=== PATIENT | female | born 2000 | race Caucasian/White ===

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

== ENCOUNTER 2019-01-02 10:36 | Emergency (ER) | payer SELFPAY ==
[2019-01-02 10:39] VITALS: BP 143/92; PULSE 93; RESP 14; TEMP 36.4; O2SAT 98; BMI 34.4
--- NOTE | 2019-01-02 12:21 | ED.UPPEXIN ---
HPI - Extremity Injury (Upper) <LYNNE Ibarra - Last Filed: 01/02/19 22:06> General Chief Complaint: Extremity Injury, Upper Stated Complaint: STITCHES STILL BLEEDING Time Seen by Provider: 01/02/19 12:12 Source: patient Mode of arrival: ambulatory Limitations: no limitations History of Present Illness HPI narrative: 18-year-old female with history of migraines and everyday smoker here for complaint of having occasional bleeding from incision site to her distal left index finger. She was seen here in the emergency room by me 5 days ago after laceration after accidentally cut herself with a kitchen knife while cutting vegetables. She states that occasionally she has had some bleeding from the laceration area. She reports that she frequently has been the distal left finger while at work as she works in a [employer]. She was concerned about infection. She denies any significant trauma to the area. She does report that she did have some yellowish drainage from the finger a few days ago. She denies any other concerns or complaints at this timeframe. Related Data Home Medications Medication Instructions Recorded Confirmed No Known Home Medications 01/02/19 01/02/19 Allergies Allergy/AdvReac Type Severity Reaction Status Date / Time No Known Drug Allergies Allergy Verified 01/02/19 10:39 Review of Systems <LYNNE Ibarra - Last Filed: 01/02/19 22:06> Review of Systems Bleeding from laceration to left index finger Constitutional Denies chills, Denies fever(s), Denies lethargy and Denies weakness Eyes Denies change in vision, Denies eye discharge, Denies irritation and Denies loss of vision ENT Ears, Nose, Mouth, and Throat: Denies change in voice, Denies neck pain and Denies sore throat Cardiovascular Denies chest pain, Denies irregular heart rhythm, Denies lightheadedness, Denies palpitations, Denies dyspnea, Denies dyspnea on exertion and Denies orthopnea Respiratory Denies cough, Denies dyspnea, Denies dyspnea on exertion and Denies wheezing Gastrointestinal Gastrointestinal: Denies abdominal pain, Denies change in bowel habits, Denies diarrhea, Denies nausea and Denies vomiting Genitourinary Denies hematuria, Denies flank pain, Denies urinary incontinence and Denies urinary urgency Musculoskeletal Denies neck pain Integumentary/Breasts Denies pruritus, Denies erythema, Denies rash and Denies wounds Neurologic Denies confusion, Denies loss of vision and Denies weakness Psychiatric Denies anxiety, Denies confusion, Denies depression, Denies homicidal ideation and Denies suicidal ideation Endocrine Denies palpitations Allergic/Immunologic Denies wheezing PFSH <LYNNE Ibarra - Last Filed: 01/02/19 22:06> Social History Smoking Status: Current every day smoker Exam <LYNNE Ibarra - Last Filed: 01/02/19 22:06> Initial Vital Signs Initial Vital Signs: Vital Signs Temperature 97.5 F L 01/02/19 10:39 Pulse Rate 93 H 01/02/19 10:39 Respiratory Rate 14 01/02/19 10:39 Blood Pressure 143/92 H 01/02/19 10:39 Pulse Oximetry 98 01/02/19 10:39 Const General: cooperative and well developed Nutritional Appearance: well nourished Orientation: alert, awake, oriented x3 and not confused HENCT Mouth: oral mucosae normal and moist mucous membranes Eyes Conjunctivae: conjunctivae normal Sclera: sclerae normal Pupils: PERRL EOM: EOM intact bilaterally Resp Effort & Inspection: normal respiratory effort, able to speak in complete sentences, no respiratory distress and no use of accessory muscles Auscultation: clear to auscultation bilaterally, no rales, no rhonchi and no wheezes Cardio Rate: regular rate Rhythm: regular rhythm Heart Sounds: no click, no gallops, no murmurs and no rubs Pulses: normal peripheral pulses Skin General: no rashes or lesions noted, No jaundice and No petechiae Neuro General: alert, oriented x3, gait normal and no focal motor deficits Speech: speech normal Extrem Other: Laceration to distal left index finger appears to be healing well. No signs of infection. Full range of motion. Distal sensation and cap refill is intact. <Marychuy Garcia DO - Last Filed: 01/06/19 02:44> Initial Vital Signs Initial Vital Signs: Vital Signs Temperature 97.5 F L 01/02/19 10:39 Pulse Rate 93 H 01/02/19 10:39 Respiratory Rate 14 01/02/19 10:39 Blood Pressure 143/92 H 01/02/19 10:39 Pulse Oximetry 98 01/02/19 10:39 Course <Mark CheekLYNNE zayas - Last Filed: 01/02/19 22:06> Vital Signs - 8 hr 01/02/19 10:39 Temperature 97.5 F L Pulse Rate 93 H Respiratory Rate 14 Blood Pressure 143/92 H Pulse Oximetry 98 <Marychuy Garcia DO - Last Filed: 01/06/19 02:44> Vital Signs - 8 hr 01/02/19 10:39 Temperature 97.5 F L Pulse Rate 93 H Respiratory Rate 14 Blood Pressure 143/92 H Pulse Oximetry 98 MDM - Extremity Injury (Upper) <Mark CheekLYNNE zayas - Last Filed: 01/02/19 22:06> MDM Narrative Medical decision making narrative: Due to patient having difficulty at work with the laceration to left index finger she is given 2 days work note for today and tomorrow. Splint is applied to finger to protect the distal tip of the finger. No signs of infection is appreciated and wound appears to be healing well. Sutures removed in approximately 5 days give wound time to heal. Tylenol Motrin as needed for any discomfort. Return emergency room for worsening symptoms. Discharge Plan Departure Patient Disposition: Home Clinical Impression: Laceration of left index finger Qualifiers: Encounter type: subsequent encounter Damage to nail status: without damage Foreign body presence: without foreign body Qualified Code(s): S61.211D - Laceration without foreign body of left index finger without damage to nail, subsequent encounter Discharge Date/Time: 01/02/19 13:26 Interventions: ED Discharge Assessment Last Done: 01/02/19 13:26 Instructions: DI for Laceration Repair -- Finger Activity Restrictions/Additional Instructions: Laceration appears to be healing well and no signs of infection. Splint is applied to protect the distal finger from further trauma use as directed. Work note provided due to difficulty and working and work environment with laceration. Sutures removed in 5 days. Use Tylenol or Motrin as needed for any discomfort. Follow up with primary care provider. Return emergency room for worsening symptoms. Prescriptions: No Action No Known Home Medications RF: 0 Referrals: [facility] [Provider Group] Stand Alone Forms: Work Release Note <Marychuy Garcia DO - Last Filed: 01/06/19 02:44> Cosign ED Attending Cosignature Attestation: I was immediately available in the department for consultation. This documentation has been reviewed and I agree with assessment and plan. Supervised by Marychuy Garcia, DO
--- NOTE | 2019-01-02 12:59 | ED_ITS ---
HPI - Extremity Injury (Upper) <LYNNE Ibarra - Last Filed: 01/02/19 22:06> General Chief Complaint: Extremity Injury, Upper Stated Complaint: STITCHES STILL BLEEDING Time Seen by Provider: 01/02/19 12:12 Source: patient Mode of arrival: ambulatory Limitations: no limitations History of Present Illness HPI narrative: 18-year-old female with history of migraines and everyday smoker here for complaint of having occasional bleeding from incision site to her distal left index finger. She was seen here in the emergency room by me 5 days ago after laceration after accidentally cut herself with a kitchen knife while cutting vegetables. She states that occasionally she has had some bleeding from the laceration area. She reports that she frequently has been the distal left finger while at work as she works in a [employer]. She was concerned about infection. She denies any significant trauma to the area. She does report that she did have some yellowish drainage from the finger a few days ago. She denies any other concerns or complaints at this timeframe. Related Data Home Medications Medication Instructions Recorded Confirmed No Known Home Medications 01/02/19 01/02/19 Allergies Allergy/AdvReac Type Severity Reaction Status Date / Time No Known Drug Allergies Allergy Verified 01/02/19 10:39 Review of Systems <LYNNE Ibarra - Last Filed: 01/02/19 22:06> Review of Systems Bleeding from laceration to left index finger Constitutional Denies chills, Denies fever(s), Denies lethargy and Denies weakness Eyes Denies change in vision, Denies eye discharge, Denies irritation and Denies loss of vision ENT Ears, Nose, Mouth, and Throat: Denies change in voice, Denies neck pain and Denies sore throat Cardiovascular Denies chest pain, Denies irregular heart rhythm, Denies lightheadedness, Denies palpitations, Denies dyspnea, Denies dyspnea on exertion and Denies orthopnea Respiratory Denies cough, Denies dyspnea, Denies dyspnea on exertion and Denies wheezing Gastrointestinal Gastrointestinal: Denies abdominal pain, Denies change in bowel habits, Denies diarrhea, Denies nausea and Denies vomiting Genitourinary Denies hematuria, Denies flank pain, Denies urinary incontinence and Denies urin demetria urgency Musculoskeletal Denies neck pain Integumentary/Breasts Denies pruritus, Denies erythema, Denies rash and Denies wounds Neurologic Denies confusion, Denies loss of vision and Denies weakness Psychiatric Denies anxiety, Denies confusion, Denies depression, Denies homicidal ideation and Denies suicidal ideation Endocrine Denies palpitations Allergic/Immunologic Denies wheezing PFSH <LYNNE Ibarra - Last Filed: 01/02/19 22:06> Social History Smoking Status: Current every day smoker Exam <LYNNE Ibarra - Last Filed: 01/02/19 22:06> Initial Vital Signs Initial Vital Signs: Vital Signs Temperature 97.5 F L 01/02/19 10:39 Pulse Rate 93 H 01/02/19 10:39 Respiratory Rate 14 01/02/19 10:39 Blood Pressure 143/92 H 01/02/19 10:39 Pulse Oximetry 98 01/02/19 10:39 Const General: cooperative and well developed Nutritional Appearance: well nourished Orientation: alert, awake, oriented x3 and not confused HENGA Mouth: oral mucosae normal and moist mucous membranes Eyes Conjunctivae: conjunctivae normal Sclera: sclerae normal Pupils: PERRL EOM: EOM intact bilaterally Resp Effort & Inspection: normal respiratory effort, able to speak in complete sentences, no respiratory distress and no use of accessory muscles Auscultation: clear to auscultation bilaterally, no rales, no rhonchi and no wheezes Cardio Rate: regular rate Rhythm: regular rhythm Heart Sounds: no click, no gallops, no murmurs and no rubs Pulses: normal peripheral pulses Skin General: no rashes or lesions noted, No jaundice and No petechiae Neuro General: alert, oriented x3, gait normal and no focal motor deficits Speech: speech normal Extrem Other: Laceration to distal left index finger appears to be healing well. No signs of infection. Full range of motion. Distal sensation and cap refill is intact. <Marychuy Garcia DO - Last Filed: 01/06/19 02:44> Initial Vital Signs Initial Vital Signs: Vital Signs Temperature 97.5 F L 01/02/19 10:39 Pulse Rate 93 H 01/02/19 10:39 Respiratory Rate 14 01/02/19 10:39 Blood Pressure 143/92 H 01/02/19 10:39 Pulse Oximetry 98 01/02/19 10:39 Course <LYNNE Ibarra - Last Filed: 01/02/19 22:06> Vital Signs - 8 hr 01/02/19 10:39 Temperature 97.5 F L Pulse Rate 93 H Respiratory Rate 14 Blood Pressure 143/92 H Pulse Oximetry 98 <Marychuy Garcia DO - Last Filed: 01/06/19 02:44> Vital Signs - 8 hr 01/02/19 10:39 Temperature 97.5 F L Pulse Rate 93 H Respiratory Rate 14 Blood Pressure 143/92 H Pulse Oximetry 98 MDM - Extremity Injury (Upper) <LYNNE Ibarra - Last Filed: 01/02/19 22:06> MDM Narrative Medical decision making narrative: Due to patient having difficulty at work with the laceration to left index finger she is given 2 days work note for today and tomorrow. Splint is applied to finger to protect the distal tip of the finger. No signs of infection is appreciated and wound appears to be healing well. Sutures removed in approximately 5 days give wound time to heal. Tylenol Motrin as needed for any discomfort. Return emergency room for worsening symptoms. Discharge Plan Departure Patient Disposition: Home Clinical Impression: Laceration of left index finger Qualifiers: Encounter type: subsequent encounter Damage to nail status: without damage Foreign body presence: without foreign body Qualified Code(s): S61.211D - Laceration without foreign body of left index finger without damage to nail, subsequent encounter Discharge Date/Time: 01/02/19 13:26 Interventions: ED Discharge Assessment Last Done: 01/02/19 13:26 Instructions: DI for Laceration Repair -- Finger Activity Restrictions/Additional Instructions: Laceration appears to be healing well and no signs of infection. Splint is applied to protect the distal finger from further trauma use as directed. Work note provided due to difficulty and working and work environment with laceration. Sutures removed in 5 days. Use Tylenol or Motrin as needed for any discomfort. Follow up with primary care provider. Return emergency room for worsening symptoms. Prescriptions: No Action No Known Home Medications RF: 0 Referrals: [facility] [Provider Group] Stand Alone Forms: Work Release Note <Marychuy Garcia DO - Last Filed: 01/06/19 02:44> Cosign ED Attending Cosignature Attestation: I was immediately available in the department for consultation. This documentation has been reviewed and I agree with assessment and plan. Supervised by Marychuy Garcia,
--- NOTE | 2019-01-02 13:07 | PC.NURSE ---
Pt states laceration continues to bleed intermittently after sutures placed 12/27/18. This only occurs when she is at work and uses the finger/bumps it on things. No other symptoms at this time. The sutures are intact.No bleeding seen during assessment.
== END 2019-01-02 13:26 | disposition home or self-care (01) ==
PROVIDERS: Emergency Provider Nurse Practitioner Family
DX: S61.211D Laceration without foreign body of left index finger without damage to nail, subsequent encounter (principal)
CPT/HCPCS: 29130; 99282

== ENCOUNTER 2019-10-04 13:09 | Emergency (ER) | payer SELFPAY ==
[2019-10-04 13:14] VITALS: BP 129/82; PULSE 97; RESP 16; TEMP 36.9; O2SAT 98; BMI 37.1
--- NOTE | 2019-10-04 13:17 | PC.NURSE ---
Hot grease spilled on patient. Pt has a small area on bilateral inner thighs half dollar sized without blistering. Pt also has an area on right lower abdomen half dollar sized erythema. Top of patients left foot not including the toes erythema,no blistering
--- NOTE | 2019-10-04 13:26 | ED_ITS ---
HPI - Burn/Smoke Inhalation General Chief complaint: Burn/Smoke Inhalation Stated complaint: Spilled hot grease on left foot Time Seen by Provider: 10/04/19 13:11 Source: patient Mode of arrival: Ambulatory Limitations: no limitations History of Present Illness HPI Narrative: Otherwise healthy 19-year-old female here for evaluation of a burn to the top of her left foot. Patient states she was barefoot in her kitc hen at home when she spilled hot grease on the top of her left foot. She did wash it off. Came to the emergency department for evaluation. Related Data Previous Rx's Medication Instructions Recorded acetaminophen-codeine 1 tab PO Q4H PRN #10 tab 10/04/19 [Tylenol-Codeine #3] Allergies Allergy/AdvReac Type Severity Reaction Status Date / Time No Known Drug Allergies Allergy Verified 10/04/19 13:14 Review of Systems Constitutional Constitutional: Denies fever(s) Integumentary/Breasts Comments: Burn to the top left foot Neurologic Neurologic: Denies confusion Psychiatric Psychiatric: Denies confusion Hematologic/Lymphatic Hematologic/Lymphatic: Denies easy bleeding and Denies easy bruising Patient History Medical History Migraines (Acute) Social History Smoking Status: Current every day smoker alcohol intake frequency: 0-2 drinks per day Substance Use Type: marijuana Exam Initial Vital Signs Initial Vital Signs: Vital Signs Temperature 98.4 F 10/04/19 13:14 Pulse Rate 97 H 10/04/19 13:14 Respiratory Rate 16 10/04/19 13:14 Blood Pressure 129/82 10/04/19 13:14 Pulse Oximetry 98 10/04/19 13:14 Resp Effort & Inspection: normal respiratory effort Skin Other: Patient with a 1% total body surface area burn to the top of the left foot. Superficial junior. No blistering. Neuro Sensory Exam: no sensory deficits noted Extrem Other: Full range of motion left ankle Psych Appearance: grossly normal and well kempt Course Vital Signs Vital signs: Vital Signs - 8 hr 10/04/19 13:14 Temperature 98.4 F Pulse Rate 97 H Respiratory Rate 16 Blood Pressure 129/82 Pulse Oximetry 98 MDM - Burn/Smoke Inhalation MDM Narrative Medical decision making narrative: Less than 1% total body surface area first- degree burn to the top of left foot. So itching cream was placed. Patient was given pain control. She was given return precautions. She given care instructions. She expressed understanding and agreement plan. No indication for transfer to a burn center. Discharge Plan Departure Patient Disposition: Home Clinical Impression: Burn Instructions: DI for Junior Activity Restrictions/Additional Instructions: You can shower like normal. After today you can put topical bacitracin or another topical antibiotic ointment of your choice over the burn of your left foot. Contact your primary provider for follow-up. Return to the emergency department for any new or worsening symptoms Prescriptions: New acetaminophen-codeine [Tylenol-Codeine #3] 300-30 mg tablet 1 tab PO Q4H PRN (Reason: pain) Qty: 10 RF: 0
[2019-10-04] MEDS: SILVER SULFADIAZINE 1% CREAM 25 GM 1 APPLIC TOP (13:32)
[2019-10-04] MEDS: CODEINE/ACETAMINOPHEN 30/300 TABLET 1 TAB PO (13:43)
--- NOTE | 2019-10-04 13:47 | PC.NURSE ---
burn to dorsal aspect of left foot is approx. 10 x 8 cm, no blistering, no marco a, secondary to hot oil exposure, good distal CSM
== END 2019-10-04 13:49 | disposition home or self-care (01) ==
PROVIDERS: Emergency Provider Emergency Medicine
DX: T25.122A Burn of first degree of left foot, initial encounter (principal); T31.0 Burns involving less than 10% of body surface
CPT/HCPCS: 99282; 99283

== ENCOUNTER → 2020-12-11 11:57 | Outpatient (CLI) | payer OTHER, SELFPAY ==
[2020-12-11 12:47] LABS: Alanine Aminotransferase 50 IU/L (<35); Albumin 4.4 g/dL (3.5-5.0); Albumin Globulin Ratio 1.5 (1.0-2.8); Alkaline Phosphatase 104 U/L (38-126); Aspartate Aminotransferase 56 IU/L (14-36); BUN Creatinine Ratio 18.3 (6-22); Bilirubin Total 0.3 mg/dL (0.2-1.3); Blood Urea Nitrogen 13 mg/dL (7-17); Calcium 9.6 mg/dL (8.4-10.2); Carbon Dioxide 29 mmol/L (22-32); Chloride 103 mmol/L (98-107); Cholesterol 226 mg/dL (140-199); Estimated Glomerular Filt Rate > 60.0 mL/min (>60); Globulin 2.9 g/dL (1.7-4.1); Glucose 89 mg/dL (70-100); HDL Cholesterol 43 mg/dL (40-60); HEMOLYSIS < 15 (0-50); LDL Cholesterol Calculated 136 mg/dL (<100); Potassium 4.4 mmol/L (3.4-5.1); Sodium 137 mmol/L (137-145); Total Protein 7.3 g/dL (6.3-8.2); Triglycerides 237 mg/dL (35-150)
[2020-12-11 13:18] LABS: TSH w/ Reflex to FT4 0.66 uIU/mL (0.47-4.68)
== END ==
LOC: LAB 11:57
PROVIDERS: PCP Family Medicine; Referring Provider Family Medicine; Visit Provider Family Medicine
DX: E78.00 Pure hypercholesterolemia, unspecified (principal); Z13.29 Encounter for screening for other suspected endocrine disorder; Z76.89 Persons encountering health services in other specified circumstances
CPT/HCPCS: 36415; 80053; 80061; 84443

== ENCOUNTER 2021-05-11 10:15 | Emergency (ER) | payer OTHER, SELFPAY ==
[2021-05-11] VITALS (15 sets, daily range): BP systolic 104–148; BP diastolic 61–93; PULSE 71–114; RESP 16–20; TEMP 36.6; O2SAT 96–99; BMI 43.8
[2021-05-11 10:39] LABS: Add Manual Diff / Slide Review NO; Basophils Absolute Auto 100 /uL (0-100); Basophils Percent Auto 1.4 % (0-2); Eosinophils Absolute Auto 300 /uL (0-450); Eosinophils Percent Auto 2.5 % (2-4); Hematocrit 40.4 % (36-46); Hemoglobin 13.4 g/dL (12.0-16.0); Lymphocytes Absolute Auto 2900 /uL (1100-4500); Lymphocytes Percent Auto 27.3 % (25-40); Mean Corpuscular HGB Conc 33.1 % (30-36); Mean Corpuscular Hemoglobin 28.8 PG (26-34); Monocytes Absolute Auto 900 /uL (0-900); Monocytes Percent Auto 8.1 % (3-14); Neutrophils Absolute Auto 6400 /uL (1500-7000); Neutrophils Percent Auto 60.7 % (50-75); Platelet Count 389 X10^3/uL (150-400); Red Blood Cell Count 4.64 X10^6/uL (4.0-5.2); Red Cell Distribution Width 15.1 % (11.6-14.8); White Blood Cell Count 10.6 X10^3/uL (4.5-11.0)
[2021-05-11 10:48] LABS: BUN Creatinine Ratio 21.7 (6-22); Blood Urea Nitrogen 13 mg/dL (7-17); Carbon Dioxide 26 mmol/L (22-32); Chloride 106 mmol/L (98-107); Estimated Glomerular Filt Rate > 60.0 mL/min (>60); Glucose 98 mg/dL (70-100); Potassium 4.4 mmol/L (3.4-5.1); Sodium 138 mmol/L (137-145)
[2021-05-11 10:51] LABS: HEMOLYSIS 55 (0-50)
[2021-05-11 11:05] LABS: HCG Quantitative /Beta subunit < 2.4 mIU/mL
--- NOTE | 2021-05-11 11:32 | PC.NURSE ---
Provided pad for pt to switch to.
--- NOTE | 2021-05-11 11:37 | PC.NURSE ---
Pt states period start last night with copious amount of blood noted this morning, additionally has cramping with intermittent dizziness.
--- NOTE | 2021-05-11 12:06 | ED_ITS ---
HPI - Female Genitourinary General Chief complaint: Urogenital-Female Stated complaint: crapping and bleeding Time Seen by Provider: 05/11/21 12:06 Source: patient Mode of arrival: Ambulatory Limitations: no limitations History of Present Illness HPI Narrative: this is a 20-year-old female comes in with complaint of increased pelvic cramping particularly on the right side but both sides in general. Patient states she has had heavy vaginal bleeding. She typically gets irregular periods about every 3 months and has quite heavy periods but this is been significantly worse than normal. She has been going through a super tampon every couple hours. Patient states she has felt a little nauseated. She denies any chest pain or shortness of breath. She has general abdominal discomfort but mostly in the pelvic region. She has some lower back cramping as well. Patient has not appreciate any dysuria, frequency or urgency. She has an appreciate any vaginal discharge or foul odor recently. She states she is sexually active. She has not checked a test at home. Patient states she is otherwise h ealthy does does have a history of herpes outbreaks and is on Valcyte clear daily. No other regular medications. No major surgeries. No known drug allergies. Related Data Previous Rx's Medication Instructions Recorded ketoconazole 2 % topical cream 1 applic TOPICAL BID #15 g 12/11/20 Allergies Allergy/AdvReac Type Severity Reaction Status Date / Time No Known Drug Allergies Allergy Verified 12/11/20 11:14 Review of Systems Review of Systems ROS Unobtainable: All systems reviewed & are unremarkable except as noted in HPI and below Patient History Medical History Herpes (~2019) Migraines Tinea Surgical History Anesthesia History of tonsillectomy (~2007) No pertinent past surgical history alcohol intake frequency: 0-2 drinks per day Substance Use Type: marijuana Exam Narrative Exam Narrative: GENERAL: Alert and oriented x three, Female with BMI of 43 in mild distress. HEENT: Head normocephalic, atraumatic, EOMI, pupils reactive, face symmetric, moist mucous membranes NECK: Supple, full range of motion CARDIOVASCULAR: Regular rate and rhythm without murmurs, rubs or gallops. RESPIRATORY: Breath sounds equal bilaterally, no wheezes rales or rhonchi. ABDOMEN: Soft, Generalized tenderness greatest at the left lower quadrant. Normoactive bowel sounds all 4 quadrants. No guarding or rebound, rigidity, no mass : No CVA tenderness bilaterally EXTREMITIES: Normal range of motion, no clubbing or edema. Neurovascularly intact NEUROLOGICAL: Cranial nerves II through XII grossly intact. Moving all extremities SKIN: Warm, dry, no petechiae, no rashes or lesions. Initial Vital Signs Initial Vital Signs: Vital Signs Temperature 97.8 F 05/11/21 10:23 Pulse Rate 93 H 05/11/21 10:23 Respiratory Rate 20 05/11/21 10:23 Blood Pressure 131/77 05/11/21 10:23 Pulse Oximetry 99 05/11/21 10:23 Course Orders Ordered: ED Orders 05/11/21 12:06 US pelvic complete Stat 05/11/21 13:28 CT abdomen pelvis w con Stat Discontinued Medications Sodium Chloride (Normal Saline 0.9%) 1,000 mls @ 1,000 mls/hr IV BOLUS ONE Stop: 05/11/21 13:06 Last Infusion: 05/11/21 14:01 Dose: 0 mls/hr Documented by: Admin: 05/11/21 12:14 Dose: 1,000 mls/hr Documented by: TASH Ketorolac Tromethamine (Ketorolac 30 Mg/Ml Vial) 30 mg IV NOW ONE Stop: 05/11/21 12:07 Last Admin: 05/11/21 12:15 Dose: 30 mg Documented by: TASH Ondansetron HCl (Ondansetron 4 Mg/2 Ml Inj) 4 mg IV NOW ONE Stop: 05/11/21 12:07 Last Admin: 05/11/21 12:15 Dose: 4 mg Documented by: TASH Consultations Consultation #1: Foist, call to follow up in office. Agree with need for section leader follow up. Time: 15:43 Vital Signs Vital signs: Vital Signs - 8 hr 05/11/21 12:00 05/11/21 12:14 05/11/21 12:30 Pulse Rate 85 80 114 H Blood Pressure 104/74 Pulse Oximetry 96 99 98 05/11/21 12:31 05/11/21 12:58 05/11/21 13:00 Pulse Rate 105 H 82 83 Blood Pressure 148/93 H 136/63 137/66 Pulse Oximetry 99 97 97 05/11/21 13:30 05/11/21 13:31 05/11/21 14:20 Pulse Rate 83 81 78 Blood Pressure 120/61 Pulse Oximetry 97 98 99 05/11/21 14:30 05/11/21 15:00 05/11/21 15:27 Pulse Rate 78 71 79 Blood Pressure 138/63 Pulse Oximetry 97 97 96 05/11/21 15:30 Pulse Rate 80 Blood Pressure 140/65 Pulse Oximetry 97 MDM - Female Genitourinary Lab Data Attestation: I reviewed the patient's lab results. Result diagrams: 05/11/21 10:10 05/11/21 10:10 Labs: Lab Results 05/11/21 05/11/21 Range/Units 10:10 10:10 WBC 10.6 (4.5-11.0) X10^3/uL RBC 4.64 (4.0-5.2) X10^6/uL Hgb 13.4 (12.0-16.0) g/dL Hct 40.4 (36-46) % MCV 87.0 (80-100) fL MCH 28.8 (26-34) PG MCHC 33.1 (30-36) % RDW 15.1 H (11.6-14.8) % Plt Count 389 (150-400) X10^3/uL Neut % (Auto) 60.7 (50-75) % Lymph % (Auto) 27.3 (25-40) % Dillon % (Auto) 8.1 (3-14) % Eos % (Auto) 2.5 (2-4) % Baso % (Auto) 1.4 (0-2) % Neut # (Auto) 6400 (5514-4087) /uL Lymph # (Auto) 2900 (5830-8730) /uL Dillon # (Auto) 900 (0-900) /uL Eos # (Auto) 300 (0-450) /uL Baso # (Auto) 100 (0-100) /uL Sodium 138 (137-145) mmol/L Potassium 4.4 (3.4-5.1) mmol/L Chloride 106 (98-107) mmol/L Carbon Dioxide 26 (22-32) mmol/L BUN 13 (7-17) mg/dL Creatinine 0.60 (0.52-1.04) mg/dL Estimated GFR > 60.0 (>60) mL/min BUN/Creatinine Ratio 21.7 (6-22) Glucose 98 (70-100) mg/dL Calcium 9.0 (8.4-10.2) mg/dL HCG, Quant < 2.4 mIU/mL Imaging Data US - STAFF SUBMARINE WARFARE OFFICER: Radiologist's Impression: [address] [id number] ReportSigned Patient: Chen Slaughter#: [id number]: 2000Acct:[id number]/Sex: 20 / FDate of Service: 05/11/21Loc: EDAccession Number: [id number] Procedure: US pelvic complete Ordering Provider: Marychuy Garcia D.O. PROCEDURE: US PELVIC COMPLETE INDICATIONS: vaginal bleeding, no TECHNIQUE: Real-time scanning was performed of the pelvic organs, with image documentation. Additional endovaginal scanning was necessary due to incomplete visualization of the adnexal and endometrial structures by transabdominal scanning. COMPARISON: None. FINDINGS: Uterus: Uterus is normal in size at 7.2 x 3.8 x 5.2 cm. The endometrium measures 8.6 mm in combined thickness. Ovaries: Right ovary is unremarkable. It measures 3.3 x 1.9 x 1.9 cm. There is no normal left ovary seen. There is a very large left adnexal cystic mass with either debris or irregular wall thickening measuring 13.0 x 7.5 x 8.3 cm. There is no vascularity to this lesion. Other: No pathologic free abdominal or pelvic fluid. IMPRESSION: Very large cystic left adnexal mass with either debris or irregular wall thickening. No normal left ovary seen. Comment: Recommend CT abdomen and pelvis with contrast. Dictated by: Perico Yusuf M.D. on 05/11/2021 at 12:05 Approved by: Perico Yusuf M.D. on 05/11/2021 at 12:09 CT scan - abdomen/pelvis: Radiologist's Impression: [address] [id number] Scan ReportSigned Patient: Sarita SlaughterR#: [id number]: 2000Acct:[id number]/Sex: 20 / FDate of Service: 05/11/21Loc: EDAccession Number: [id number] Procedure: CT abdomen pelvis w con Ordering Provider: Marychuy Garcia D.O. PROCEDURE: CT ABDOMEN PELVIS W CON INDICATIONS: adnexal mass, vaginal bleeding TECHNIQUE: After the administration of intravenous contrast, axial sections acquired from the lung bases to the pubic symphysis. Coronal and sagittal reformats were performed. For radiation dose reduction, the following was used: automated exposure control, adjustment of mA and/or kV according to patient size. COMPARISON: [facility], , PELVIC COMPLETE, 05/11/2021, 12:29. FINDINGS: Image quality: Excellent. Lung bases: Unremarkable. Heart: No significant findings. ABDOMEN: Liver: Unremarkable. Gallbladder: Unremarkable. Biliary ducts: Unremarkable. Pancreas: Unremarkable. Spleen: Unremarkable. Adrenal Glands: Unremarkable. Kidneys and Ureters: Unremarkable. Stomach and Bowel: Stomach, small bowel loops, and colon are unremarkable. Normal appendix. Peritoneum: No abnormal intraperitoneal fluid. No free air. Ventral Wall: No hernias. Abdominal Nodes: No retroperitoneal or mesenteric adenopathy by size criteria. Vessels: Aorta and inferior vena cava are normal in size. PELVIS: Pelvic Organs: There is a large cystic pelvic mass, which may potentially arise from the left adnexa, as suggested by today's pelvic ultrasound. However, it is predominantly to the right of midline. It has wall thickening and minimal wall calcification. It measures 12.3 x 12.6 x 7.9 cm. Bladder: Unremarkable. Pelvic Nodes: No enlarged lymph nodes. Miscellaneous: No hernias are seen. Bones: Unremarkable. IMPRESSION: 1. Large cystic pelvic mass of uncertain etiology. 2. No other significant findings. Recommend STAFF SUBMARINE WARFARE OFFICER consultation. Dictated by: Perico Yusuf M.D. on 05/11/2021 at 13:29 Approved by: Perico Yusuf M.D. on 05/11/2021 at 13:35 MDM Narrative Medical decision making narrative: This is a 20-year-old female with chronically very heavy vaginal bleeding with irregular periods which developed significantly worse bleeding and then normal. Patient's vital signs of labs her reassuring but pelvic ultrasound was ordered. Urine was negative. There appears to be in excellent mass and CT abdomen was ordered for further characterization. There is quite a large mass noted patient case was discussed with OBGYN, Dr. Su who agrees that patient would benefit from follow-up shortly and patient is to follow up outpatient and contact them tomorrow. Patient defers any medications for pain we did discuss return precautions. She is comfortable with this plan at the time. Discharge Plan Departure Patient Disposition: Home Clinical Impression: Vaginal bleeding, Pelvic mass Activity Restrictions/Additional Instructions: Follow-up with Dr. Su or one of your partners for further evaluation and workup of the pelvic mass found on your imaging today. call the office 1st thing tomorrow morning. Let them know that Dr. Su would like you to be seen urgently. You may take Motrin up to 800 mg every 8 hours as needed for pain. You may also take Tylenol up to a 1000 mg every 8 hours as needed for pain. Please return for fevers, rapidly worsening abdominal, back or flank pain, persistent vomiting, lightheadedness or passing out, chest pain or shortness of breath, if you are having worsening vaginal bleeding or going through a pad or tampon an hour or other new or concerning symptoms. Prescriptions: No Action ketoconazole 2 % cream 1 applic topical BID Qty: 15 RF: 2 Referrals: Genia Su MD [Physician] - Erickson Ramos DO [Primary Care Provider] -
[2021-05-11] MEDS: SODIUM CHLORIDE 0.9% 1,000 ML 1000 ML IV (12:14)
[2021-05-11] MEDS: ONDANSETRON 4 MG/2 ML INJ IV (12:15)
[2021-05-11] MEDS: KETOROLAC 30 MG/ML VIAL IV (12:15)
--- NOTE | 2021-05-11 13:28 | DI.CT.S_ITS ---
PROCEDURE: CT ABDOMEN PELVIS W CON INDICATIONS: adnexal mass, vaginal bleeding TECHNIQUE: After the administration of intravenous contrast, axial sections acquired from the lung bases to the pubic symphysis. Coronal and sagittal reformats were performed. For radiation dose reduction, the following was used: automated exposure control, adjustment of mA and/or kV according to patient size. COMPARISON: [facility], , PELVIC COMPLETE, 05/11/2021, 12:29. FINDINGS: Image quality: Excellent. Lung bases: Unremarkable. Heart: No significant findings. ABDOMEN: Liver: Unremarkable. Gallbladder: Unremarkable. Biliary ducts: Unremarkable. Pancreas: Unremarkable. Spleen: Unremarkable. Adrenal Glands: Unremarkable. Kidneys and Ureters: Unremarkable. Stomach and Bowel: Stomach, small bowel loops, and colon are unremarkable. Normal appendix. Peritoneum: No abnormal intraperitoneal fluid. No free air. Ventral Wall: No hernias. Abdominal Nodes: No retroperitoneal or mesenteric adenopathy by size criteria. Vessels: Aorta and inferior vena cava are normal in size. PELVIS: Pelvic Organs: There is a large cystic pelvic mass, which may potentially arise from the left adnexa, as suggested by today's pelvic ultrasound. However, it is predominantly to the right of midline. It has wall thickening and minimal wall calcification. It measures 12.3 x 12.6 x 7.9 cm. Bladder: Unremarkable. Pelvic Nodes: No enlarged lymph nodes. Miscellaneous: No hernias are seen. Bones: Unremarkable. IMPRESSION: 1. Large cystic pelvic mass of uncertain etiology. 2. No other significant findings. Recommend FLAT SORTER PROCESSOR consultation. Dictated by: Perico Yusuf M.D. on 05/11/2021 at 13:29 Approved by: Perico Yusuf M.D. on 05/11/2021 at 13:35
== END 2021-05-11 16:01 | disposition home or self-care (01) ==
PROVIDERS: Emergency Provider Emergency Medicine; PCP Family Medicine
DX: R19.00 Intra-abdominal and pelvic swelling, mass and lump, unspecified site (principal); N93.9 Abnormal uterine and vaginal bleeding, unspecified
CPT/HCPCS: 36415; 74177; 76830; 76856; 80048; 84702; 85025; 99284; J1885; J2405; Q9967

== ENCOUNTER → 2021-05-13 17:11 | Outpatient (CLI) | payer OTHER, SELFPAY ==
[2021-05-13 18:00] LABS: Cancer Antigen 125 26.5 U/mL (0-35)
== END ==
PROVIDERS: PCP Family Medicine; Visit Provider Specialist
DX: N94.89 Other specified conditions associated with female genital organs and menstrual cycle (principal); R19.00 Intra-abdominal and pelvic swelling, mass and lump, unspecified site
CPT/HCPCS: 86304

== ENCOUNTER → 2021-05-20 13:27 | Outpatient (CLI) | payer OTHER, SELFPAY ==
[2021-05-20 14:22] LABS: COVID19 -Nasal RAPID Negative (Negative)
== END ==
PROVIDERS: PCP Family Medicine; Visit Provider Specialist
DX: Z20.822 Contact with and (suspected) exposure to COVID-19 (principal)
CPT/HCPCS: 87635

== ENCOUNTER 2021-05-20 14:00 | Day surgery (SDC) | payer OTHER, SELFPAY ==
[2021-05-15 14:20] VITALS: BMI 43.7
[2021-05-20] VITALS (7 sets, daily range): BP systolic 134–165; BP diastolic 79–100; PULSE 62–92; RESP 14–18; TEMP 36.6–36.8; O2SAT 95–98; BMI 43.7
--- NOTE | 2021-05-20 | PATH_ITS ---
Note [facility] Accession Number: [id number] TESTS RESULT FLAG UNITS REF RANGE LAB Clinician Provided Cytology Information No. of containers..01 Other (Miscellaneous) 01 LEFT OVARY CELL WASH DIAGNOSIS: 02 LEFT OVARY CELL WASH POSITIVE FOR NEOPLASM. THIS INTERPRETATION INCLUDES EVALUATION OF A CELL BLOCK. PLEASE SEE COMMENT. 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 Pathologist ICD10: 02 N83.209, R10.2 02 Trang Agrawal MD, Pathologist NPI- [id number] Jeffrey Lofton, [employer] ([facility]) 01 20 CC, RED, CLOUDY RECEIVED: FRESH IN WHITE CAP CONTAINER. /[facility] 05/22/2021 0545 Local FLAG LEGEND: L-Low Normal,H-High Normal,LL-Alert Low,HH-Alert High <-Panic Low,>-Panic High,A-Abnormal,AA-Critical Abnormal Performed at: 01 =Z [facility] [address] [address], [place] [address] Scott Gray MD, 02 L[facility] [address] [place] [address] Reyna Thornton MD, Performed at: 01 [facility] [address], [place], [place] [id number] MD Scott Gray MD Phone: [phone]
[2021-05-20] MEDS: LACTATED RINGERS 1,000 ML 100 ML IV (14:40)
--- NOTE | 2021-05-20 15:01 | PM.PREOP ---
Pre-operative Note COVID-19 COVID-19 status: Negative Result date/Date tested (Pos, Neg/Pending): 05/20/21 Interval Note History & Physical reviewed/Exam performed by Physician: Yes Changes to H&P: No
--- NOTE | 2021-05-20 15:36 | SUR.OPER ---
Lithotomy on padded OR bed, head on pillow, right arms secured on padded arm board at <90 degrees abduction, left arm padded and tucked at side. Legs secured in padded yellow fins stirrups.
[2021-05-20] MEDS: BUPIVACAINE 0.5% (PF) VIAL 30 ML INJ (16:00)
[2021-05-20] MEDS: EPINEPHrine 1 MG/ML 0.15 MG INJ (16:01)
[2021-05-20] MEDS: fentaNYL 100 MCG/2 ML INJ IV ×3 (16:54→17:12)
--- NOTE | 2021-05-20 16:55 | P.OP_ITS ---
Operative Date/Time/Diagnoses Date of procedure: 05/20/21 Time of procedure: 16:55 Pre-op diagnosis: Left ovarian cyst Post-op diagnosis: same Procedure & Clinicians Procedure: Laparoscopic left salpingo oophorectomy with collections of cell washing Same procedure as scheduled: Yes Indications: Left ovarian cyst with normal CA 125 Surgeon: Genia Su Spinning Machine Tender: Paramjit Brunner Anesthesia Type: General Operative Notes Findings: Large left ovarian cyst. Normal right ovary and tube. Normal appearing liver edge. Normal appearing bowel surface. No endometriosis. No internal hernias. Closure Type: primary Specimen(s): other (Left tube and ovary and cell washings) Estimated Blood Loss (mL): 5 Blood products transfused: none Procedure in detail: Patient was brought to the operating room where she underwent general anesthesia. She was placed in low yellowfin stirrups and prepped and draped in usual sterile fashion. No antibiotics were indicated. Pulsatile stockings were in place and functional. Warming was with blankets. A single-tooth tenaculum was placed on the anterior lip of the cervix and the cervix dilated to #6 Hegar dilator. The Jackie uterine manipulator was placed and balloon inflated with 3 mL of air. The area of the incisions were injected with half percent Marcaine with epinephrine. An incision was made in the umbilicus with a scalpel and the Verres needle placed in the abdomen. Confirmation of correct placement of the needle was performed by withdrawing on the syringe and then allowing fluid to fall freely through the needle. The abdomen was insufflated to 4 L of CO2. A 5 mm trocar was placed under direct visualization. 2 other 5 mm trochars were placed in the right and left lower quadrant under direct visualization after incising the skin. There did not appear to be any damage with placement of the trocars. The left infundibulopelvic ligament was cauterized and cut with the PK generator. Sequential bites taken down the broad ligament hugging the ovary. The utero-ovarian ligament and the fallopian tube were cauterized and cut allowing the tube and ovary to be freed. The fluid was drained from the ovary being careful not to spill any tissue into the abdomen. A 15 mm port was placed suprapubically after injecting the skin with lidocaine. The tube and ovary were placed in an Endo-Catch bag and brought up to the skin. The tissue was removed without spillage. Adequate hemostasis was noted. Cell washings were obtained. The CO2 was allowed to escape from the abdomen. The trochars were removed. The suprapubic trocar fascia defect was repaired with a [id number] suture of 0 Vicryl suture. Skin was closed with 4-0 monocryl. The patient went to recovery room in good condition. The left tube and ovary as well cell washings sent to pathology. Complications: none Post-operative Condition: stable Disposition: same day surgery Plan for aftercare: Routine post laparoscopy. Treatment and follow-up based on biopsy results.
[2021-05-20] MEDS: OXYCODONE/ACETAMINOPHEN 5/325 TABLET 1 TAB PO (16:56)
== END 2021-05-20 17:57 | disposition home or self-care (01) ==
PROVIDERS: PCP Family Medicine; Referring Provider Specialist; Visit Provider Specialist
PROC: (CPT 58661; principal; 2021-05-20 15:30)
DX: N83.202 Unspecified ovarian cyst, left side (principal); F17.210 Nicotine dependence, cigarettes, uncomplicated; E66.9 Obesity, unspecified; Z68.41 Body mass index [BMI] 40.0-44.9, adult; Z20.822 Contact with and (suspected) exposure to COVID-19
CPT/HCPCS: 58661; 81025; 87635; J0171; J0330; J1100; J1885; J2405; J2704; J2765; J3010

== ENCOUNTER → 2021-05-21 09:47 | Outpatient (CLI) | payer OTHER, SELFPAY ==
[2021-05-21 10:26] LABS: Appearance Urine UA CLEAR; Bilirubin Urine UA NEGATIVE (NEGATIVE); Color Urine UA YELLOW; Glucose Urine UA NEGATIVE (Negative); Ketones Urine UA NEGATIVE (NEGATIVE); Leukocyte Esterase Urine UA NEGATIVE (NEGATIVE); Nitrite Urine UA NEGATIVE (Negative); Occult Blood Urine UA 3+ (Negative); Protein Urine UA TRACE (Negative); Specific Gravity Urine UA 1.015 (1.000-1.035); Urobilinogen Urine UA 0.2 E.U./dL (0.2)
[2021-05-21 10:50] LABS: Bacteria Urine Few (2-10); Culture Indicated Urine Cult Not Indicated; RBC Urine 1-5/HPF (0-5/HPF); Squamous Epithelial Cell Urine 5-10 /HPF (0-5/HPF); Transitional Epi Cells Urine 0-1/HPF (0-5/HPF); WBC Urine 0-1/HPF (0-5/HPF)
== END ==
PROVIDERS: PCP Family Medicine; Referring Provider Specialist; Visit Provider Specialist
DX: R35.0 Frequency of micturition (principal); R39.15 Urgency of urination
CPT/HCPCS: 81001

== ENCOUNTER 2021-06-24 23:14 | Emergency (ER) | payer OTHER, SELFPAY ==
[2021-06-24 23:27] VITALS: PULSE 87; O2SAT 96
[2021-06-24 23:28] VITALS: BP 151/96; PULSE 87; O2SAT 98
[2021-06-24 23:30] VITALS: PULSE 91; O2SAT 98
[2021-06-24 23:32] VITALS: BP 151/96; PULSE 89; RESP 20; TEMP 37; O2SAT 98; BMI 43.5
[2021-06-24 23:49] LABS: Add Manual Diff / Slide Review NO; Basophils Absolute Auto 0 /uL (0-100); Basophils Percent Auto 0.2 % (0-2); Eosinophils Absolute Auto 200 /uL (0-450); Eosinophils Percent Auto 1.9 % (2-4); Hematocrit 39.2 % (36-46); Hemoglobin 13.1 g/dL (12.0-16.0); Lymphocytes Absolute Auto 3700 /uL (1100-4500); Lymphocytes Percent Auto 33.7 % (25-40); Mean Corpuscular HGB Conc 33.3 % (30-36); Mean Corpuscular Hemoglobin 28.9 PG (26-34); Mean Corpuscular Volume 86.7 fL (80-100); Monocytes Absolute Auto 900 /uL (0-900); Monocytes Percent Auto 8.1 % (3-14); Neutrophils Absolute Auto 6100 /uL (1500-7000); Neutrophils Percent Auto 56.1 % (50-75); Platelet Count 388 X10^3/uL (150-400); Red Blood Cell Count 4.53 X10^6/uL (4.0-5.2); Red Cell Distribution Width 14.2 % (11.6-14.8); White Blood Cell Count 10.9 X10^3/uL (4.5-11.0)
[2021-06-24 23:55] LABS: Alanine Aminotransferase 30 IU/L (<35); Albumin 4.1 g/dL (3.5-5.0); Albumin Globulin Ratio 1.4 (1.0-2.8); Alkaline Phosphatase 94 U/L (38-126); Aspartate Aminotransferase 25 IU/L (14-36); BUN Creatinine Ratio 21.2 (6-22); Bilirubin Total 0.3 mg/dL (0.2-1.3); Blood Urea Nitrogen 14 mg/dL (7-17); Calcium 9.6 mg/dL (8.4-10.2); Carbon Dioxide 25 mmol/L (22-32); Chloride 105 mmol/L (98-107); Estimated Glomerular Filt Rate > 60.0 mL/min (>60); Glucose 107 mg/dL (70-100); HEMOLYSIS 20 (0-50); Lipase 69 U/L (23-300); Sodium 139 mmol/L (137-145); Total Protein 7.1 g/dL (6.3-8.2)
[2021-06-25] VITALS (7 sets, daily range): BP systolic 120–133; BP diastolic 61–80; PULSE 68–83; O2SAT 97–98
--- NOTE | 2021-06-25 00:21 | ED_ITS ---
HPI - Abdominal Pain General Chief Complaint: Abdominal Pain Stated Complaint: abdominal pain Time Seen by Provider: 06/24/21 23:19 Source: patient Mode of arrival: Ambulatory Limitations: no limitations History of Present Illness HPI narrative: 20-year-old female smoker presents with chief complaint of relatively sudden onset right lower quadrant pain that started this evening at about 10 30. She states it is sharp and stabbing in nature. She states her pain is worse when she moves and improves with rest. She denies any radiation of her pain. It has been relatively persistent since its onset. She has as sociated nausea but denies any vomiting. She denies any vaginal discharge, dysuria, frequency or urgency. She denies any constipation or diarrhea. She is currently on her menses. She had surgical intervention of a painful left ovarian cyst about 1 month ago at our facility, this is her 1st menstrual cycle since that surgery. She has had no fever or chills. Related Data Home Medications Medication Instructions Recorded Confirmed valacyclovir 500 mg tablet 500 mg PO DAILY 05/15/21 05/27/21 Previous Rx's Medication Instructions Recorded oxycodone-acetaminophen 5 mg-325 1 tab PO PACUNOW PRN #30 tab 05/20/21 mg tablet oxycodone-acetaminophen 5 mg-325 1 tab PO Q4-6H PRN #30 tab 05/20/21 mg tablet (Percocet) ketorolac 10 mg tablet 10 mg PO Q6H PRN #14 tab 06/25/21 Allergies Allergy/AdvReac Type Severity Reaction Status Date / Time No Known Drug Allergies Allergy Verified 06/24/21 23:31 Review of Systems Review of Systems Narrative: GENERAL: Denies chills, fatigue, malaise, fever, sweats. HEENT: Denies sinus pain, ear pain, sore throat, difficulty swallowing, dizziness. RESPIRATORY: Denies dyspnea, cough, wheezing, hemoptysis, sputum. CARDIOVASCULAR: Denies chest pain, palpitations, orthopnea, edema, GASTROINTESTINAL: See HP a. : Denies dysuria, frequency, incontinence, hematuria, urinary retention. MUSCULOSKELETAL: denies weakness, joint pain, or bony pain SKIN: Denies rash, skin lesions, or other NEUROLOGIC: Denies weakness, headache, numbness, change in speech, confusion, seizures, incoordination. PSYCHIATRIC: No concerning psychosocial issues. 12 point review of systems is negative except for those stated above Patient History Medical History Herpes (~2019) Migraines Tinea Surgical History Anesthesia History of tonsillectomy (~2007) No pertinent past surgical history Social History household members: friend(s) Smoking Status: Current every day smoker Tobacco: How many years used: 2 alcohol intake: current substance use type: does not use Smoking Status: Current every day smoker alcohol intake frequency: a few times a month Substance Use Type: does not use Exam Narrative Exam Narrative: GENERAL: [20] year old patient appears stated age. Well- developed patient, in mild distress. HEAD: Atraumatic. Normocephalic. EYES: Pupils equal round and reactive. Extraocular motions intact. No scleral icterus. No injection or drainage. ENT: Nose without bleeding, purulent drainage. Throat without erythema, tonsillar hypertrophy or exudate. Airway patent. NECK: Trachea midline. Non tender CARDIOVASCULAR: Regular rate and rhythm without murmurs, gallops, or rubs. RESPIRATORY: Clear to auscultation. Breath sounds equal bilaterally. No wheezes, rales, or rhonchi. GASTROINTESTINAL: Abdomen soft, tender in the right lower quadrant with localized pain nondistended. Negative heel tap, negative obturator's EXTREMITIES: No edema or joint tenderness. BACK: Nontender without deformity or crepitance. No flank tenderness. NEURO: AOx3. SKIN: No rash or erythema of visible areas Initial Vital Signs Initial Vital Signs: Vital Signs Pulse Rate 87 06/24/21 23:27 Pulse Oximetry 96 06/24/21 23:27 Course Orders Ordered: ED Orders 06/24/21 23:34 Complete Blood Count AUTO DIFF Stat Comprehensive Metabolic Panel Stat Lipase Stat 06/25/21 00:35 Urine Microscopic Stat 06/25/21 00:45 CT abdomen pelvis w con Stat Discontinued Medications Lactated Ringer's (Lactated Ringers) 1,000 mls @ 1,000 mls/hr IV BOLUS ONE Stop: 06/25/21 01:44 Last Admin: 06/25/21 01:05 Dose: 1,000 mls/hr Documented by: MMERKEL Ketorolac Tromethamine (Ketorolac 30 Mg/Ml Vial) 15 mg IV NOW ONE Stop: 06/25/21 00:46 Last Admin: 06/25/21 01:04 Dose: 15 mg Documented by: SHANTA Vital Signs Vital signs: Vital Signs - 8 hr 06/24/21 23:27 06/24/21 23:28 06/24/21 23:30 Temperature Pulse Rate 87 87 91 H Respiratory Rate Blood Pressure 151/96 H Pulse Oximetry 96 98 98 06/24/21 23:32 06/25/21 00:00 06/25/21 00:30 Temperature 98.6 F Pulse Rate 89 83 83 Respiratory Rate 20 Blood Pressure 151/96 H Pulse Oximetry 98 97 97 06/25/21 01:07 06/25/21 01:08 Temperature Pulse Rate 79 76 Respiratory Rate Blood Pressure 133/80 Pulse Oximetry 98 98 MDM - Abdominal Pain Lab Data Result diagrams: 06/24/21 23:34 06/24/21 23:34 Labs: Lab Results 06/24/21 06/24/21 06/25/21 Range/Units 23:34 23:34 00:35 WBC 10.9 (4.5-11.0) X10^3/uL RBC 4.53 (4.0-5.2) X10^6/uL Hgb 13.1 (12.0-16.0) g/dL Hct 39.2 (36-46) % MCV 86.7 (80-100) fL MCH 28.9 (26-34) PG MCHC 33.3 (30-36) % RDW 14.2 (11.6-14.8) % Plt Count 388 (150-400) X10^3/uL Neut % (Auto) 56.1 (50-75) % Lymph % (Auto) 33.7 (25-40) % [place] % (Auto) 8.1 (3-14) % Eos % (Auto) 1.9 L (2-4) % Baso % (Auto) 0.2 (0-2) % Neut # (Auto) 6100 (4384-6242) /uL Lymph # (Auto) 3700 (7709-4232) /uL Eaton # (Auto) 900 (0-900) /uL Eos # (Auto) 200 (0-450) /uL Baso # (Auto) 0 (0-100) /uL Sodium 139 (137-145) mmol/L Potassium 4.0 (3.4-5.1) mmol/L Chloride 105 (98-107) mmol/L Carbon Dioxide 25 (22-32) mmol/L BUN 14 (7-17) mg/dL Creatinine 0.66 (0.52-1.04) mg/dL Estimated GFR > 60.0 (>60) mL/min BUN/Creatinine Ratio 21.2 (6-22) Glucose 107 H (70-100) mg/dL Calcium 9.6 (8.4-10.2) mg/dL Total Bilirubin 0.3 (0.2-1.3) mg/dL AST 25 (14-36) IU/L ALT 30 (<35) IU/L Alkaline Phosphatase 94 (38-126) U/L Total Protein 7.1 (6.3-8.2) g/dL Albumin 4.1 (3.5-5.0) g/dL Globulin 3.0 (1.7-4.1) g/dL Albumin/Globulin Ratio 1.4 (1.0-2.8) Lipase 69 (23-300) U/L Urine RBC None seen (0-5/HPF) Urine WBC 0-1/hpf (0-5/HPF) Ur Squamous Epith Cells 0-1 /hpf (0-5/HPF) Amorphous Sediment 3+ Urine Bacteria None seen (None) Ur Culture Indicated? Cult not indicated Point of care testing: Point of Care Testing Test Results Negative Urine Dip Bedside Urine Glucose Negative Bedside Urine Bilirubin - Negative Bedside Urine Ketone - Negative Urine Specific [place] 1.030 Bedside Urine Occult Blood ++ Bedside Urine pH 6.0 Bedside Urine Protein - Negative Bedside Urine Urobilinogen - Negative Bedside Urine Nitrite - Negative Bedside Urine Leukocytes - Negative Esterase Imaging Data CT scan - abdomen/pelvis: Radiologist's Impression: No evidence of bowel obstruction or free air. No evidence of appendicitis. Mildly thick-walled urinary bladder MDM Narrative Medical decision making narrative: Multiple etiologies for patient's symptoms considered including: [Bowel obstruction versus appendicitis versus kidney stone versus ovarian problem versus pain with 1st menses after ovarian surgery versus other] Patient's symptoms improved over duration of stay with above-stated therapies. Findings and discharge diagnosis discussed with patient/family followed by verbalization of understanding Return precautions discussed with patient/family whom verbalize understanding. Discharge Plan Departure Patient Disposition: Home Clinical Impression: Acute right lower quadrant pain Instructions: DI for Abdominal Pain-Adult Activity Restrictions/Additional Instructions: *You have been diagnosed with [right lower quadrant pain. Urine, labs and CT scan are very reassuring, no evidence of appendicitis, bowel obstruction, kidney stone or other] *What to do: *Please continue to take your regular medications as directed. [ x] New medication prescriptions sent to your pharmacy: [[facility]] [ ] New medication written as a paper prescription [ ] No new medications given *Please follow up with your primary care provider in 2-3 days, call for an appointment. Let them know you were seen in the Emergency Department and that we ask that you be seen in follow up. We will electronically transmit a record of today's note if your PCP is in our system *If you do not have a primary care provider please contact the [facility] Resource line at [phone]. They will ask some questions about your medical history and help get you set up with a doctor in the community. *Return to Emergency Department if you should have any new, worsening or concerning symptoms, such as [fever greater than 101 F, shaking chills, worsening pain, persistent vomiting or other bothersome symptoms] Prescriptions: New ketorolac 10 mg tablet 10 mg PO Q6H PRN (Reason: pain) Qty: 14 RF: 0 No Action valacyclovir 500 mg tablet 500 mg PO DAILY RF: 0 oxycodone-acetaminophen 5-325 mg Tablet 1 tab PO PACUNOW PRN (Reason: Mild or Moderate Pain) Qty: 30 RF: 0 oxycodone-acetaminophen [Percocet] 5-325 mg tablet 1 tab PO Q4-6H PRN (Reason: pain) Qty: 30 RF: 0 Referrals: Erickson Ramos, [Primary Care Provider] -
--- NOTE | 2021-06-25 00:45 | DI.CT.S_ITS ---
PROCEDURE: CT ABDOMEN PELVIS W CON INDICATIONS: severe right lower quadrant pain TECHNIQUE: After the administration of IV contrast, axial sections were acquired from the lung bases to the pubic symphysis. Coronal and sagittal reformats were performed. For radiation dose reduction, the following was used: automated exposure control, adjustment of mA and/or kV according to patient size. COMPARISON: [facility], CT, CT ABDOMEN PELVIS W CON, 05/11/2021, 14:01. FINDINGS: Image quality: Excellent. Lung bases: Unremarkable. Heart: Within normal size limits. ABDOMEN: Liver: Unremarkable. Gallbladder: Unremarkable. Biliary ducts: Unremarkable. Pancreas: Unremarkable. Spleen: Unremarkable. Adrenal Glands: Unremarkable. Kidneys and Ureters: Unremarkable. Stomach and Bowel: Stomach, small bowel loops, and colon are unremarkable. The appendix is normal in appearance. There are few colonic diverticula without acute diverticulitis. Peritoneum: No abnormal intraperitoneal fluid. No free air. Ventral Wall: No hernia. Abdominal Nodes: No retroperitoneal or mesenteric adenopathy by size criteria. Vessels: Aorta and inferior vena cava are normal in size. PELVIS: Pelvic Organs: The uterus and ovaries appear within normal size limits. No discrete adnexal mass identified. A small nonspecific calcification is noted within the left ovary. Bladder: The urinary bladder is incompletely distended. Pelvic Nodes: No enlarged lymph nodes. Miscellaneous: No inguinal hernias are seen. Bones: Unremarkable. IMPRESSION: 1. No definite acute intra-abdominal abnormality. Specifically, no evidence of appendicitis. 2. Incomplete distention of the urinary bladder with suggestion of mild wall thickening likely due to under distention. Recommend correlation with urinalysis if there is clinical suspicion for cystitis. 3. Colonic diverticulosis without acute diverticulitis. Dictated by: Scott Martinez M.D. on 06/25/2021 at 9:41 Approved by: Scott Martinez M.D. on 06/25/2021 at 9:44
[2021-06-25 01:00] LABS: Bacteria Urine None Seen; RBC Urine None Seen (0-5/HPF)
[2021-06-25] MEDS: KETOROLAC 30 MG/ML VIAL 15 MG IV (01:04)
[2021-06-25] MEDS: LACTATED RINGERS 1,000 ML 1000 ML IV (01:05)
[2021-06-25 01:07] LABS: Amorphous Sediment Urine 3+; Culture Indicated Urine Cult Not Indicated; Squamous Epithelial Cell Urine 0-1 /HPF (0-5/HPF); WBC Urine 0-1/HPF (0-5/HPF)
[2021-06-25] MEDS: HYDROCODONE/ACET 5/325 PREPACK 1 BOTTLE MISC (02:35)
== END 2021-06-25 02:25 | disposition home or self-care (01) ==
PROVIDERS: Emergency Provider Emergency Medicine; PCP Family Medicine
DX: R10.31 Right lower quadrant pain (principal)
CPT/HCPCS: 36415; 74177; 80053; 81003; 81015; 81025; 83690; 85025; 96361; 96374; 99284; J1885; Q9967

== ENCOUNTER → 2021-08-05 13:25 | Outpatient (CLI) | payer OTHER, SELFPAY ==
[2021-08-05 14:13] LABS: Add Manual Diff / Slide Review NO; Basophils Absolute Auto 0 /uL (0-100); Basophils Percent Auto 0.4 % (0-2); Eosinophils Absolute Auto 200 /uL (0-450); Eosinophils Percent Auto 2.2 % (2-4); Hematocrit 38.2 % (36-46); Hemoglobin 12.5 g/dL (12.0-16.0); Lymphocytes Absolute Auto 2200 /uL (1100-4500); Lymphocytes Percent Auto 22.4 % (25-40); Mean Corpuscular HGB Conc 32.8 % (30-36); Mean Corpuscular Hemoglobin 28.1 PG (26-34); Mean Corpuscular Volume 85.7 fL (80-100); Monocytes Absolute Auto 600 /uL (0-900); Monocytes Percent Auto 5.8 % (3-14); Neutrophils Absolute Auto 6700 /uL (1500-7000); Neutrophils Percent Auto 69.2 % (50-75); Platelet Count 375 X10^3/uL (150-400); Red Blood Cell Count 4.45 X10^6/uL (4.0-5.2); White Blood Cell Count 9.7 X10^3/uL (4.5-11.0)
[2021-08-05 14:14] LABS: Appearance Urine UA CLOUDY; Bilirubin Urine UA NEGATIVE (NEGATIVE); Color Urine UA YELLOW; Glucose Urine UA NEGATIVE (Negative); Ketones Urine UA NEGATIVE (NEGATIVE); Leukocyte Esterase Urine UA TRACE (NEGATIVE); Nitrite Urine UA NEGATIVE (Negative); Occult Blood Urine UA NEGATIVE (Negative); Protein Urine UA NEGATIVE (Negative); Specific Gravity Urine UA 1.025 (1.000-1.035); Urobilinogen Urine UA 0.2 E.U./dL (0.2)
[2021-08-05 14:16] LABS: Pregnancy Test Urine Negative (Negative)
[2021-08-05 14:17] LABS: pH Urine UA 5.5 (4.5-8.0)
[2021-08-05 14:22] LABS: RBC Urine 0-1/HPF (0-5/HPF); WBC Urine 1-5/HPF (0-5/HPF)
[2021-08-05 14:23] LABS: Amorphous Sediment Urine 3+; Bacteria Urine None Seen; Culture Indicated Urine Cult Not Indicated; Squamous Epithelial Cell Urine 5-10 /HPF (0-5/HPF)
[2021-08-05 14:49] LABS: Alanine Aminotransferase 37 IU/L (<35); Albumin 4.2 g/dL (3.5-5.0); Albumin Globulin Ratio 1.5 (1.0-2.8); Alkaline Phosphatase 88 U/L (38-126); Aspartate Aminotransferase 32 IU/L (14-36); BUN Creatinine Ratio 19.7 (6-22); Bilirubin Total 0.4 mg/dL (0.2-1.3); Blood Urea Nitrogen 14 mg/dL (7-17); Calcium 9.5 mg/dL (8.4-10.2); Carbon Dioxide 29 mmol/L (22-32); Chloride 104 mmol/L (98-107); Estimated Glomerular Filt Rate > 60.0 mL/min (>60); Globulin 2.8 g/dL (1.7-4.1); Glucose 96 mg/dL (70-100); HEMOLYSIS < 15 (0-50); Potassium 4.1 mmol/L (3.4-5.1); Sodium 138 mmol/L (137-145)
[2021-08-06 13:59] LABS: Interpretation Negative (Negative)
== END ==
PROVIDERS: PCP Family Medicine; Referring Provider Registered Nurse; Visit Provider Registered Nurse
DX: R10.9 Unspecified abdominal pain (principal); R35.0 Frequency of micturition; R11.0 Nausea
CPT/HCPCS: 36415; 80053; 81003; 81015; 81025; 83013; 85025

== ENCOUNTER → 2021-10-02 13:51 | Outpatient (CLI) | payer SELFPAY ==
[2021-10-02 15:01] LABS: Add Manual Diff / Slide Review NO; Basophils Absolute Auto 100 /uL (0-100); Basophils Percent Auto 0.6 % (0-2); Eosinophils Absolute Auto 200 /uL (0-450); Eosinophils Percent Auto 1.7 % (2-4); Hematocrit 40.8 % (36-46); Hemoglobin 13.6 g/dL (12.0-16.0); Lymphocytes Absolute Auto 2600 /uL (1100-4500); Lymphocytes Percent Auto 24.6 % (25-40); Mean Corpuscular HGB Conc 33.3 % (30-36); Mean Corpuscular Hemoglobin 28.1 PG (26-34); Mean Corpuscular Volume 84.4 fL (80-100); Monocytes Absolute Auto 600 /uL (0-900); Neutrophils Absolute Auto 7100 /uL (1500-7000); Neutrophils Percent Auto 67.1 % (50-75); Platelet Count 382 X10^3/uL (150-400); Red Blood Cell Count 4.84 X10^6/uL (4.0-5.2); Red Cell Distribution Width 14.3 % (11.6-14.8); White Blood Cell Count 10.6 X10^3/uL (4.5-11.0)
[2021-10-02 16:27] LABS: Cancer Antigen 125 6.7 U/mL (0-35)
== END ==
PROVIDERS: PCP Family Medicine; Referring Provider Specialist; Visit Provider Specialist
DX: C65.9 Malignant neoplasm of unspecified renal pelvis (principal); N92.1 Excessive and frequent menstruation with irregular cycle
CPT/HCPCS: 36415; 85025; 86304

== ENCOUNTER → 2022-01-27 10:29 | Outpatient (CLI) | payer OTHER, SELFPAY ==
[2022-01-27 13:14] LABS: Cancer Antigen 125 < 5.5 U/mL (0-35)
== END ==
PROVIDERS: PCP Family Medicine; Referring Provider Specialist; Visit Provider Specialist
DX: C56.9 Malignant neoplasm of unspecified ovary (principal)
CPT/HCPCS: 36415; 86304